=== PATIENT | female | born 1990 | race Caucasian/White ===

== ENCOUNTER 2020-10-14 09:50 | Inpatient (IN) ==
[2020-10-14] MEDS ORDERED: FAMOTIDINE 20 MG/2 ML VIAL IV ONE (10:01)
[2020-10-14] MEDS ORDERED: ceFAZolin 3,000 MG in SYRINGE 1 EACH IV ONE (10:01)
[2020-10-14] MEDS ORDERED: CITRIC ACID/SODIUM CITRATE 30 ML UDCUP PO ONE (10:01)
[2020-10-14 10:21] LABS: Basophils % 0.3 % (0.0-0.8); Eosinophils # 0.2 10*3/uL (0.0-0.87); Hemoglobin 13.2 GM/DL (12.0-16.0); Immature Granulocytes % 0.6 %; Immature Granulocytes Absolute 0.06 #; Lymphocytes # 2.2 10*3/uL (1.4-4.0); Lymphocytes % 21.9 % (21.3-54.2); Mean Corpuscular Volume 89.5 FL (87-102); Mean Platelet Volume 10.7 FL (9.6-12.0); Monocytes % 6.8 % (1.7-12.7); Neutrophils % 68.4 % (38.7-73.9); Platelet Count 299 T/CUMM (130-400); Red Blood Count 4.47 MC/CUMM (3.8-5.5); Red Cell Distribution Width 13.6 % (9.3-17.3); White Blood Count 10.1 T/CUMM (4-12)
[2020-10-14] MEDS ORDERED: LACTATED RINGERS 1,000 ML IV ONE ×2 (10:23→12:13)
[2020-10-14] MEDS ORDERED: OXYTOCIN/LR 20 UNIT/1,000 ML BAG IV ONE ×2 (10:34→12:54)
[2020-10-14] MEDS ORDERED: DEXAMETHASONE 4 MG/1 ML VIAL ONE ×3 (10:48→10:50)
[2020-10-14] MEDS ORDERED: ONDANSETRON 4 MG/2 ML VIAL ONE (10:48)
[2020-10-14] MEDS ORDERED: BUPIVACAINE SPINAL 0.75% 2 ML AMP SPINAL ONE (10:51)
[2020-10-14] MEDS ORDERED: BUPIVACAINE MPF 0.25% 30 ML VIAL ONE (10:51)
[2020-10-14] MEDS ORDERED: miSOPROStoL 200 MCG TABLET ONE (10:52)
[2020-10-14] MEDS ORDERED: TRANEXAMIC ACID 1,000 MG/10 ML VIAL ONE ×2 (10:52→10:53)
[2020-10-14] MEDS ORDERED: CARBOPROST TROMETHAMINE 250 MCG/ML AMP IM ONE (10:53)
[2020-10-14] MEDS ORDERED: METHYLERGONOVINE 0.2 MG/1 ML AMP ONE (10:53)
[2020-10-14] MEDS ORDERED: MORPHINE 10 MG/10 ML VIAL ONE (10:55)
[2020-10-14] MEDS ORDERED: KETOROLAC 30 MG/1 ML VIAL ONE (10:58)
[2020-10-14] MEDS: LACTATED RINGERS 1,000 ML IV SCH ×2 (11:02→18:48)
[2020-10-14] MEDS ORDERED: ePHEDrine 50 MG/ML VIAL ONE (11:46)
[2020-10-14] MEDS ORDERED: fentaNYL 100 MCG/2 ML VIAL ONE (12:26)
[2020-10-14] MEDS ORDERED: PHENYLEPHRINE 1 MG/10 ML SYRINGE IV ONE (12:32)
[2020-10-14 12:49] LABS: Cord Arterial Blood HCO3 18.6 MMOL/L
[2020-10-14 12:50] LABS: Bilirubin,Urine Negative (Negative); Blood, Urine Negative (Negative); Glucose,Urine (UA) Negative (Negative); Ketones,Urine 5 mg/dL (Negative); Mucus,Urine Occasional /LPF (Occasional); Nitrite,Urine Negative (Negative); Protein,Urine Negative; RBC,Urine <1 /HPF (0-4); Squamous Epithelial Cell,Urine Occasional /HPF (0-10); Urine Appearance CLEAR (Clear); Urine Color Yellow (Yellow); Urine Specific Gravity 1.024 (1.001-1.035); Urine Urobilinogen < 2.0 EU/DL (0.2-1.0); WBC,Urine 1 /HPF (0-6)
[2020-10-14 12:54] LABS: Cord Venous Blood HCO3 19.5 MMOL/L; Cord Venous Blood PCO2 55.3 MMHG; Cord Venous Blood PO2 24.8
[2020-10-14] MEDS ORDERED: ACETAMINOPHEN 325 MG TABLET PO PRN (12:54)
[2020-10-14] MEDS ORDERED: RHO(D) IMMUNE GLOBULIN 300 MCG SYRINGE IM ONE (12:54)
[2020-10-14] MEDS ORDERED: SIMETHICONE CHEW 80 MG TABLET PO PRN (12:54)
[2020-10-14] MEDS ORDERED: ONDANSETRON 4 MG/2 ML VIAL IV PRN (12:54)
[2020-10-14] MEDS ORDERED: ceFAZolin 1,000 MG in SYRINGE 1 EACH IV SCH (13:00)
[2020-10-14] MEDS ORDERED: LACTATED RINGERS 1,000 ML IV SCH (13:00)
[2020-10-14] MEDS: diphenhydrAMINE CAP 25 MG CAPSULE PO PRN (18:48)
[2020-10-14 20:14] LABS: Basophils % 0.2 % (0.0-0.8); Eosinophils % 0.1 % (0.00-10.9); Immature Granulocytes % 0.5 %; Immature Granulocytes Absolute 0.08 #; Lymphocytes # 1.2 10*3/uL (1.4-4.0); Lymphocytes % 8.1 % (21.3-54.2); Mean Corpuscular HGB Conc 32.4 GM/DL (32-36); Mean Corpuscular Volume 91.1 FL (87-102); Mean Platelet Volume 11.1 FL (9.6-12.0); Monocytes % 2.3 % (1.7-12.7); Neutrophils % 88.8 % (38.7-73.9); Platelet Count 287 T/CUMM (130-400); Red Blood Count 4.06 MC/CUMM (3.8-5.5); Red Cell Distribution Width 13.4 % (9.3-17.3); White Blood Count 15.1 T/CUMM (4-12)
[2020-10-14] MEDS: ceFAZolin 1,000 MG in SYRINGE 1 EACH IV SCH (21:00)
[2020-10-15] MEDS: ceFAZolin 1,000 MG in SYRINGE 1 EACH IV SCH (04:34)
[2020-10-15] MEDS: oxyCODONE/ACETAMINOPHEN 5-325 MG TABLET PO PRN ×5 (04:44→21:15)
[2020-10-15] MEDS: IBUPROFEN 800 MG TABLET PO PRN ×3 (04:44→21:15)
[2020-10-15] MEDS: DOCUSATE SODIUM 100 MG CAPSULE PO SCH ×3 (05:18→21:16)
[2020-10-15 05:21] LABS: Basophils % 0.2 % (0.0-0.8); Eosinophils # 0.1 10*3/uL (0.0-0.87); Eosinophils % 0.6 % (0.00-10.9); Hematocrit 32.7 VOL% (35.7-47.0); Hemoglobin 10.9 GM/DL (12.0-16.0); Immature Granulocytes % 0.5 %; Immature Granulocytes Absolute 0.06 #; Lymphocytes # 2.2 10*3/uL (1.4-4.0); Lymphocytes % 17.4 % (21.3-54.2); Mean Corpuscular HGB Conc 33.3 GM/DL (32-36); Mean Corpuscular Volume 89.8 FL (87-102); Mean Platelet Volume 10.7 FL (9.6-12.0); Monocytes % 8.2 % (1.7-12.7); Neutrophils % 73.1 % (38.7-73.9); Platelet Count 269 T/CUMM (130-400); Red Blood Count 3.64 MC/CUMM (3.8-5.5); Red Cell Distribution Width 13.2 % (9.3-17.3); White Blood Count 12.5 T/CUMM (4-12)
[2020-10-15] MEDS: diphenhydrAMINE CAP 25 MG CAPSULE PO PRN (08:39)
[2020-10-15] MEDS: MAGNESIUM HYDROXIDE SUSP 30 ML UDCUP PO PRN ×2 (08:39→21:16)
[2020-10-15] MEDS: MULTIVITAMIN (PRENATAL) TABLET PO SCH (08:42)
[2020-10-15] MEDS ORDERED: ALUMINUM/MAGNES/SIMETH MAX STR 30 ML UDCUP PO PRN (17:16)
[2020-10-16] MEDS: oxyCODONE/ACETAMINOPHEN 5-325 MG TABLET PO PRN ×3 (01:30→10:09)
[2020-10-16 08:06] VITALS: BP 111/65
[2020-10-16] MEDS: MAGNESIUM HYDROXIDE SUSP 30 ML UDCUP PO PRN (09:19)
[2020-10-16] MEDS: IBUPROFEN 800 MG TABLET PO PRN (09:21)
[2020-10-16] MEDS: DOCUSATE SODIUM 100 MG CAPSULE PO SCH (09:21)
[2020-10-16] MEDS: MULTIVITAMIN (PRENATAL) TABLET PO SCH (09:21)
== END 2020-10-16 14:00 | disposition home or self-care (01) | DRG 785 ==
LOC: N.LD 09:50 → N.OB 15:43
PROVIDERS: ADMIT Obstetrics & Gynecology; ATTEND Obstetrics & Gynecology